=== PATIENT | male | born 1980 | race Caucasian/White ===

== ENCOUNTER 2018-10-02 14:12 | Day surgery (SDC) | payer OTHER ==
[2018-10-02] MEDS: LACTATED RINGER'S 1,000 ML IV (15:47)
[2018-10-02] MEDS: CEFAZOLIN 2 GM/50 ML (PMX) 50 ML IVPB (16:00)
[2018-10-02] MEDS: POLYMYXIN/BACITRACIN 1L IRRIG (17:05)
[2018-10-02] MEDS ORDERED: MIDAZOLAM 1 MG/ML 2 ML INJ (17:08)
[2018-10-02] MEDS ORDERED: PROPOFOL 20 ML (18:24)
[2018-10-02] MEDS ORDERED: CEFAZOLIN 1 GM INJ (18:24)
[2018-10-02] MEDS ORDERED: LIDOCAINE 2% (SDV) 5 ML INJ (18:24)
[2018-10-02] MEDS ORDERED: ROPIVACAINE 0.5 % 30 ML VIAL (18:24)
[2018-10-02] MEDS ORDERED: ONDANSETRON 4 MG INJ ×2 (18:25→19:08)
[2018-10-02] MEDS ORDERED: ONDANSETRON 4 MG INJ IV (19:00)
[2018-10-02] MEDS ORDERED: DIPHENHYDRAMINE 50 MG INJ IV (19:00)
[2018-10-02] MEDS ORDERED: HYDROmorphONE 1 MG/5 ML IV SYRINGE IV (19:00)
[2018-10-02] MEDS ORDERED: FENTAnyl 50 MCG/ML VIAL IV (19:00)
[2018-10-02] MEDS ORDERED: METOCLOPRAMIDE 10 MG INJ IV (19:00)
[2018-10-02] MEDS ORDERED: MEPERIDINE 25 MG INJ (19:08)
[2018-10-02] MEDS: MEPERIDINE 25 MG INJ IV (19:34)
[2018-10-02] MEDS: HYDROmorphONE 1 MG/5 ML IV SYRINGE IV (20:00)
== END 2018-10-02 20:45 | disposition home or self-care (01) ==
LOC: SDS 14:12
DX: G56.01 Carpal tunnel syndrome, right upper limb (principal); S52.571G Other intraarticular fracture of lower end of right radius, subsequent encounter for closed fracture with delayed healing; X58.XXXD Exposure to other specified factors, subsequent encounter
CPT/HCPCS: 64721; 71045; 73090-RT